=== PATIENT | male | born 1960 | race Caucasian/White ===

== ENCOUNTER 2018-10-02 07:23 | Emergency (ER) | payer MEDICARE, MEDICAID ==
[2018-10-02] MEDS: KETOROLAC 30 MG INJ IM (07:52)
== END 2018-10-02 09:05 | disposition home or self-care (01) ==
LOC: E/R 07:23
DX: S29.011A Strain of muscle and tendon of front wall of thorax, initial encounter (principal); R07.9 Chest pain, unspecified; V47.5XXA Car driver injured in collision with fixed or stationary object in traffic accident, initial encounter; V89.2XXA Person injured in unspecified motor-vehicle accident, traffic, initial encounter
CPT/HCPCS: 71046; 93005; 96372; 99284-25